=== PATIENT | male | born 1990 | race Two or more races ===

== ENCOUNTER 2024-06-29 09:59 | Emergency (ER) | payer OTHER ==
[~2024-06-29] VITALS: Ht 198.1 cm; Wt 88.8 kg
[2024-06-29 10:13] VITALS: BP 135/75; PULSE 50; RESP 17; O2SAT 97
== END 2024-06-29 11:09 | disposition left against medical advice (07) ==
LOC: ER 09:59
DX: R05.9 Cough, unspecified (principal); R09.81 Nasal congestion; Z53.21 Procedure and treatment not carried out due to patient leaving prior to being seen by health care provider